=== PATIENT | female | born 1985 | race Caucasian/White ===

== ENCOUNTER 2024-08-04 11:29 | Emergency (ER) | payer BC, SELFPAY ==
--- OUTSIDE RECORDS SUMMARY | 2023-12-12 05:00 | XMS_ITS ---
Author Organization [facility] e Address [address] [place] [address] Care Team Providers Care Circuit Judge Name Role Phone None, No PCP Primary Care Provider Unavailabl Joy Almeida Unavailable [phone] [facility], Mammography Unavailable Unav ailable Encounters Encounter Location Date Provider Diagnosis [facility] [address] [place] [address] 12/12/2023 Mammography [facility] Plan Of Treatment No Information Progress Notes * Agustin JEFFREYB:1985 (38 yo F)Acc No.[id number]:12/12/2023 Patient: Steffi FONTANA Provider: Robyn mireles [facility] Care :1985 A ge:38 Y S ex:Female Date:12/12/2023 Address:[address] [place], [place] [id number] Pcp:No PCP None Subjective: * Chief Complaints: * * Medical History: Objective: * Vitals: Assessment: Plan: * Treatment: * Images: Billing Information: * Visit Code: * Procedure Codes: * Electronic signature of Mamm ography [facility] Care on 08/04/2024 at 03:44 PM CDT Sign off status: Pending * Provider: Robyn mireles [facility] Care Date: 02/10/2023 Generated for Issa navarro/Juany/eTpolinasmitting on: 0 08/04/2024 03:44 PM CDT
[2024-08-04 12:08] VITALS: BP 136/93; PULSE 77; RESP 18; TEMP 36.6; O2SAT 96; BMI 29.5
--- NOTE | 2024-08-04 15:03 | CRLHL7_ITS ---
For Patients: As a result of the Century Cures Act, medical imaging exams and procedure reports are released immediately into your electronic medical record. You may view this report before your referring provider. If you have questions, please contact your health care provider. INDICATION: Low back pain. TECHNIQUE: Lumbar spine 3 view. COMPARISON: None. FINDINGS: Vertebrae: No acute fracture or suspicious bone lesion. Alignment is normal. Joints: Minimal multilevel endplate spurring. Lower lumbar facet arthropathy. Moderate disc space narrowing at L4-L5. Soft tissues: Unremarkable. IMPRESSION: 1. No acute findings. 2. Spondylotic changes greatest at L4-L5. Dictated by Makenzie Gaffney MD @ 08/04/2024 3:41:13 PM (Electronically Signed)
--- OUTSIDE RECORDS SUMMARY | 2024-08-04 15:44 | XMS_ITS | Clinical Summary ---
Author Organization [facility] Address [address] [place] [address] Care Team Providers Care Disk Recoater Name Role Phone Pcp, Pt Declines MD Primary Care Provider [phone] Source Comments You are receiving this document as you are listed as the primary care provider,follow-up provider, or the patient has been referred to you for consultation.This is in compliance with the Medicare and[employer] Hospital[employer] EHR Incentive Program,which states Providers who transition their patient to another setting of careor provider of care or refers their patient to another provider of care shouldprovide summary care record for each transition of care or referral. Angella Joy Allergies No known active allergies Medications * This document contains information received from the source organization and may not represent a complete record from that organization. ferrous sulfate 325 (65 Fe) MG tabletIndication s:Anemia, unspecified type Take 1 Tablet (325 mg) by mouth every other day. 50 Tablet 3 4 Active neomycin-polymyx in-dexamethasone (MAXITROL) 3.5-72262-8.1 OINT eye ointment 1/2 inch film onto surgical incision site four times daily for 1 week. Do not start before April 25, 2023. 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 Provider to review and confirm. LGSIL on Pap smear of cervix 02/23/2008 Overview (04/13/2023): Due for f/u pap in 01/2009 Iron deficiency anemia 02/12/2007 Overview (04/13/2023): Problem list name updated by automated process. Provider to review Resolved Problems Problem Noted Date Diagnosed Date Resolved Date History of section 02/09/2014 04/13/2023 High-risk 02/09/2014 04/13/19 24 Immunizations Immunization Administration Dates Next Due 4vHPV (Gardasil) 08/07/2009 9vHPV (Gardasil 9) 08/07/2009 DTP 06/13/1989, 9,03/28/1988,1987 Flu Vac (3+ yrs) 12/05/2006 HepB Adult (Engerix-B, 20+ y rs, 3 dose series) 01/21/2001,10/06/2000,08/27/2000 Hib (ActHIB) 11/28/1989 IPV (Polio) 08/27/2000 Influenza IIV4 (Quadrivalent ) 0.5mL ([id number]) 12/08/2013 MMR 08/27/2000,06/13/1989 OPV, Trivalent (Orimune or tOPV) 06/13/1989,03/13,01/30/1988 Td 05/13/2003 Tdap 07/05/2016,05/08/2014,05/13/2003 Family History Medical History Relation Name Comments Cataract Maternal Grandmother Glaucoma Negative Family History Macular Degeneration Negative Family History Retinal Detachment Negative Family History Relation Name Status Comments Maternal Grandmother Social History Tobacco Use Types Packs/Day Years Used Date Smoking Tobacco: Former Cigarettes Q uit: 12/22/2010 Smokeless Tobacco: Never Tobacco Cessation:Counseling Given: Not Answered Alcohol Use Standard Drinks/Week Comments Yes 0 (1 standard drink = 0.6 oz pur e alcohol) monthly or less PHQ-2 Answer Date Recorded PHQ-2 Score 0 11/19/2021 Comments No Sex and Gender Information Value Date Recorded Sex Assigned at Not on file Legal Sex Female 6:57 AM CDT Gender Identity Not on file Sexual Orientation Not on file Last Filed Vital Signs Vital Sign Reading Time Taken Comments Blood Pressure 119/85 04/14/2023 2:09 PM HORSE BREAKER Pulse 65 04/14/2023 2:09 PM HORSE BREAKER Temperature 36.5 C (97.7 F) 04/14/2023 2:09 PM HORSE BREAKER Respiratory Rate 16 11/29/2021 2:30 PM CDT Oxygen Saturation 99% 11/29/2021 2:30 PM CDT Inhaled Oxygen Concentration - - Weight 79.8 kg (176 lb) 02/13/2023 2:22 PM HORSE BREAKER Height 162.6 cm (5' 4.02) 02/13/2023 2:22 PM CS T Body Mass Index 30.2 02/13/2023 2:22 PM HORSE BREAKER Plan of Treatment Health Maintenance Due Date Last Done Comments Cervical Cancer Screening Due 1985 Hep C Screening (Preventive Services) 1985 HIV Screening (Preventive Services) 2003 Adult Preventive Visit 11/24/2005 HPV Vaccine (2 - 3-dose series) 09/04/2009 08/07/2009, 08/07/2009 COVID-19 Vaccine ( season) 2023 Influenza Vaccine (Season Ended) 2024 12/08/2013, 12/05/2006 DTaP/Tdap/Td Vaccine (9 - Tdap) 07/05/2026 07/05/2016, 05/08/2014, 05/13/2003, Additional history exists Zoster/Shingles Vaccine (1 of 2) 11/24/2037 Hib Vaccine Completed 11/28/1989 HepB Vaccine Completed 01/21/2001, 09/11, 08/27/2000 HepA Vaccine Aged Out No longer eligi ble based on patient's age to complete this topic MCV4 Vaccine Aged Out No longer eligi ble based on patient's age to complete this topic Meningococcal B Vaccine Aged Out No l onger eligible based on patient's age to complete this topic Pneumococcal Vaccine Aged Out No long er eligible based on patient's age to complete this topic Insurance [facility] [employer] [facility] [employer] Care Teams Disk Recoater Relationship Specialty Start Date End Date Pcp, [place] [address] PCP - General 01/19/19
--- OUTSIDE RECORDS SUMMARY | 2024-08-04 15:45 | XMS_ITS | Clinical Summary ---
Author Organization [facility] Address [address] [place] [address] Care Team Providers Care Equipment Installation Professional Name Role Phone Clinic, [facility] Primary Care Provid er Allergies No known active allergies Medications predniSONE 20 mg tabletIndicatio ns:Acute right-sided low back pain without sciatica Take 2 Tablets (40 mg) by mouth once daily with a meal for 5 days. 10 Tablet 08/03/2024 5 Active tiZANidine 4 mg tabletIndicatio ns:Acute right-sided low back pain without sciatica,Muscle spasm of back Take 1 Tablet (4 mg) by mouth every 8 hours if needed for Muscle Spasm for up to 5 days. 15 Tablet 08/03/2024 5 Active Active Problems No known active problems Encounters Date Type Department Care Team Description 08/03/2024 11:40 AM CDT Office Visit [facility] [address] [place] [address] Nila Pierce, FIDELIA Lower Back Pain (R side x3 weeks; worsening) 08/03/2024 Travel from Last 3 Months Immunizations Immunization Administration Dates Next Due DTaP 06/13/1989,06/20/1988,03/28/1988 ,01/30/1988 Human Papilloma Virus Vaccine 08/07/2009 Influenza, IIV3 (Age >=3 years) 12/05/2006 MMR 06/13/1989 Oral Polio Vaccine 06/13/1989,03/28/1988, 988 Tdap 05/13/2003 Social History Tobacco Use Types Packs/Day Years Used Date Smoking Tobacco: Former Cigarettes Tobacco Cessation:Counseling Given: Not Answered Alcohol Use Standard Drinks/Week Comments No 0 (1 standard drink = 0.6 oz pur e alcohol) hx abuse Social Connections Answer Date Recorded Do you often feel lonely or isolated from those around you? 0 08/03/2024 Financial Resource Strain Answer Date R ecorded Difficulty of Paying Living Expenses 3 08/03/2024 Difficulty of Paying Living Expenses Not on file 08/03/2024 Food Insecurity Answer Date Recorded Do you worry your food will run out before you are able to buy more? 1 08/03/2024 Transportation Needs Answer Date Record ed Does lack of transportation keep you from medica l appointments? 1 08/03/2024 Does lack of transportation keep you from work, meetings or getting things that you need? 1 08/03/2024 Housing Stability Answer Date Recorded What is your housing situation today? 1 08/03/2024 Utilities Answer Date Recorded Do you have trouble paying f or utilities (for example, heat, electricity, water, phone)? 1 08/03/2024 Comments Unknown Sex and Gender Information Value Date Recorded Sex Assigned at Not on file Legal Sex Female 8:15 AM BRANCH OPERATIONS COORDINATOR Gender Identity Not on file Sexual Orientation Not on file Obstetrics History Para Term AB IAB SAB Ectopic Multiple Livin g Live Births 2 1 Date Outcome GA Total Labor Labor/2nd/3rd Weight Sex Type Anes PTL Gisselle A1 A5 Name Clin Para Comments LMP= July 19- normal Last Filed Vital Signs Vital Sign Reading Time Taken Comments Blood Pressure 148/77 08/03/2024 11:36 AM CDT Pulse 69 08/03/2024 11:36 AM CDT Temperature 36.2 C (97.1 F) 08/03/2024 11:36 AM CDT Respiratory Rate 16 08/03/2024 11:36 AM CDT Oxygen Saturation 100% 08/03/2024 11:36 AM CDT Inhaled Oxygen Concentration - - Weight 75.3 kg (166 lb) 08/03/2024 11:36 AM CDT Height 160 cm (5' 3) 08/03/2024 11:36 AM CDT Body Mass Index 29.41 08/03/2024 11:36 AM CDT Plan of Treatment Health Maintenance Due Date Last Done Comments Depression screening for age 12+ 1999 HIV for age 15-65 11/24/2002 Hepatitis C screening for ag e 18-79 11/24/2005 Hepatitis B series for 19+ ( 1 of 3 - 19+ 3-dose series) 11/24/2006 Pap test for age 21-65 11/24/2008 Tetanus booster 05/12/2013 05/13/2003 COVID-19 vaccine series ( - 2023- season) 2023 Influenza Vaccine (Season Ended) 2024 12/06/19 07 BMI (ht and wt on same day) for age 18+ 08/03/2025 08/03/2024 Tdap Completed 05/13/2003 Pneumococcal series for age 6-49 Aged Out No longer eligible based on patient's age to complete this topic [place] [address] [address] [facility] Care Teams Equipment Installation Professional Relationship Specialty Start Date End Date [address] [phone] PCP - General 09/19/13
--- OUTSIDE RECORDS SUMMARY | 2024-08-04 15:45 | XMS_ITS | Patient Health Record ---
Author Organization [facility] e Address [address] [place] [address] Care Team Providers Care Model Photographers' Name Role Phone None, No PCP Primary Care Provider Unavailabl e Joy Watt Unavailable [phone] [facility], Mammography Unavailable Unav ailable Reason For Referral No Information Plan Of Treatment No Information Insurance Providers Payer Name Payer Address Payer Phone Subscriber Number Group Number Insured Name Patient Relationship to Insured Coverage Start Date Coverage End Date BCBS - (Client Bill) [address] [place] [address] [id number] Steffi Jeffrey Self - patient is the insured
--- NOTE | 2024-08-04 15:56 | ED.BACK ---
HPI - Back Pain/Injury General Date Seen: 08/04/24 Chief Complaint: Back Injury/Pain Stated Complaint: lower back pain Time Seen by Provider: 08/04/24 14:40 Source: patient Mode of arrival: ambulatory Limitations: no limitations History of Present Illness HPI Narrative: Patient is a 38-year-old female presenting to the emergency department for right low back pain. She states she 1st developed this pain several months ago around [place]. The pain eventually went away but 2 weeks ago it seemed to have come back. She has not remember any injuries to her back. She states she woke up and her back was sore. Went to urgent care and was given prednisone and muscle relaxer without any improvement. Has been taking Tylenol ibuprofen without any improvement. Has not had any dysuria or other UTI symptoms. Does states she has been doing constipation for a couple months also. States the constipation started before her back pain came back. Denies any saddle anesthesia, urinary or it could did not, urinary retention, IV drug use, fevers, chills. She does state having a bowel movement seems to make the pain a little bit better. Pain radiates to her anterior thighs bilaterally. No other concerns noted. Related Data Home Medications ?Medication ?Instructions ?Recorded ?Confirmed prednisone 20 mg tablet 40 mg PO DAILY 08/04/24 08/04/24 tizanidine 4 mg capsule 4 mg PO Q8H PRN 08/04/24 08/04/24 Allergies Allergy/AdvReac Type Severity Reaction Status Date / Time No Known Drug Allergies Allergy Verified 08/04/24 12:07 Review of Systems Status of ROS: Reports: 10 or more systems reviewed and unremarkable except as noted in History and below [facility] Social History Smoking Status: Former smoker How often do you have a drink containing alcohol: never AUDIT-C Alcohol total score: 0 Non-prescribed substance use: denies use Exam Narrative: Exam Narrative: Const: Well-nourished, Well-developed, in mild distress Eyes: PERRL, no conjunctival injection, and symmetrical lids HENT: Atraumatic external nose and ears. Moist mucous membranes. Neck: Symmetric, trachea midline, No thyromegaly. CVS: RRR, No murmurs or gallops. Peripheral pulses 2+ and equal in all extremities RESP: Unlabored respiratory effort. Clear to auscultation bilaterally. GI: Nontender/Nondistended, No rebound or guarding. MSK:Extremities w/o deformity, Normal Active ROM, mild tenderness to palpation right low back paraspinal muscle. No midline spinal tenderness. Negative straight leg test and contralateral straight leg test Skin: Warm, Dry. No rashes or lesions. Neuro: Normal Muscle tone, No focal neurological deficits. Psych: Awake, Alert, & Oriented x3. Appropriate mood and affect. Const: Vital Signs, click to edit/add: Vital Signs - 24 hr 08/04/24 12:08 Temperature 97.9 F Pulse Rate [Pulse Oximeter] 77 Respiratory Rate 18 Blood Pressure [Ri ght Upper Arm] 136/93 H Pulse Oximetry 96 Oxygen Delivery Me thod Room Air Course Vital Signs Vital signs: Initial Vital Signs Temperature 97.9 F 08/04/24 12:08 Temperature Source Temporal Artery Scan 08/04/24 12:08 Pulse Rate 77 08/04/24 12:08 Pulse Rhythm Regular 08/04/24 12:08 Respiratory Rate 18 08/04/24 12:08 Blood Pressure 136/93 H 08/04/24 12:08 Blood Pressure Mean 107 H 08/04/24 12:08 Blood Pressure Position Sitting 08/04/24 12:08 Pulse Oximetry 96 08/04/24 12:08 Oxygen Delivery Method Room Air 08/04/24 12:08 Vital Signs Temperature 97.9 F 08/04/24 12:08 Pulse Rate 77 08/04/24 12:08 Respiratory Rate 18 08/04/24 12:08 Blood Pressure 136/93 H 08/04/24 12:08 Pulse Oximetry 96 08/04/24 12:08 Oxygen Delivery Method Room Air 08/04/24 12:08 Temperature 97.9 F 08/04/24 12:08 Pulse Rate 77 08/04/24 12:08 Respiratory Rate 18 08/04/24 12:08 Blood Pressure 136/93 H 08/04/24 12:08 Pulse Oximetry 96 08/04/24 12:08 Oxygen Delivery Method Room Air 08/04/24 12:08 MDM - Back Pain/Injury MDM Narrative Medical decision making narrative: Patient is a 38-year-old female presenting for low back pain. She does have a DD red flag symptoms for cauda equina transverse myelitis. No recent trauma to the back. She would like x-rays done though. X-ray of the lumbar spine was ordered. Return showing no acute findings. I did offer her some Toradol which she accepted. She will be discharged. I informed her to follow up with the primary care provider. Imaging Data Lumbar spine x-ray: Attestation: I have reviewed the pertinent imaging results. Radiologist's impression: 1. No acute findings. 2. Spondylotic changes greatest at L4-L5. Dictated by Makenzie Gaffney MD @ 08/04/2024 3:41:13 PM Discharge Plan Discharge Clinical Impression: Lumbar radiculopathy Patient Disposition: Home, Self-Care Condition: Stable Instructions: Acute Low Back Pain (ED) Additional Instructions: Use the Toradol as needed for pain. While using Toradol do not take any other NSAIDs such as ibuprofen or naproxen as they are the same passive drugs. Toradol does increase the chance of stomach ulcers. You can continue to take Tylenol. You can continue to take the steroid and muscle relaxer previously prescribed. Do recommend following up with the primary care provider or the [facility]. They may prescribe you physical therapy. Return to emergency department if you do develop numbness to your butt in the region that would be sitting on a saddle if you're on a horse (AKA saddle anesthesia), urinary incontinence, urinary retention. Prescriptions: No Action prednisone 20 mg tablet 40 mg PO DAILY tizanidine 4 mg capsule 4 mg PO Q8H PRN Follow Up/Referrals: Provider,Not a Local [Primary Care Provider, Family Practice] Stand Alone Forms: Psydex Info Instructions
== END 2024-08-04 16:12 | disposition home or self-care (01) ==
PROVIDERS: Emergency Provider Student in an Organized Health Care Education/Training Program
DX: M54.16 Radiculopathy, lumbar region (principal)
CPT/HCPCS: 72100; 99283